=== PATIENT | male | born 1985 | race Caucasian/White ===

== ENCOUNTER 2021-04-09 10:00 | Outpatient (CLI) | payer OTHER ==
--- NOTE | 2021-04-09 16:31 | XRAY Report ---
PROCEDURE: Hand 3 View RT INDICATIONS: R HAND PX TECHNIQUE: 3 views of the hand(s) acquired. COMPARISON: None FINDINGS: Bones: No fractures or dislocations. No suspicious bony lesions. Soft tissues: No suspicious soft tissue calcifications. IMPRESSION: No visualized acute fracture or dislocation. However, occult injury cannot be excluded. Recommend maile rt interval imaging follow-up in 7-10 days as clinically indicated for additional evaluation. Reviewed by: Ramila Stephen MD on 04/09/2021 4:30 PM PDT Approved by: Ramila Stephen MD on 04/09/2021 4:30 PM PDT Station ID: [id number]
== END 2021-04-09 23:59 | disposition home or self-care (01) ==
LOC: DI.N 10:00
PROVIDERS: ATTEND Physician Assistant
DX: M79.641 Pain in right hand (principal)